=== PATIENT | male | born 1975 | race Caucasian/White ===

== ENCOUNTER → 2017-12-05 | Outpatient (CLI) | payer MEDICAID | LOC: BRMIMAGING 14:07 | PROVIDERS: ATTEND Internal Medicine | DX: M85.811 Other specified disorders of bone density and structure, right shoulder (principal); M85.812 Other specified disorders of bone density and structure, left shoulder; M79.641 Pain in right hand; M79.642 Pain in left hand; M25.561 Pain in right knee; M25.562 Pain in left knee; R76.0 Raised antibody titer | CPT/HCPCS: 73030-PO; 73130-PO; 73562-PO ==